=== PATIENT | female | born 1990 | race Caucasian/White ===

== ENCOUNTER 2021-02-26 19:09 | Emergency (ER) | payer OTHER ==
[2021-02-26 20:47] LABS: Bilirubin 1+ (Negative); Blood, Urine 50 (Negative); Clarity Clear (Clear); Glucose, Urine (Dipstick) Normal (Negative); Ketone, Urine 150 mg/dL (Negative); Leukocyte Negative (Negative); Nitrite Negative (Negative); Protein, Urine (Dipstick) 15 mg/dl (Neg-Trace); Specific Gravity, Urine 1.025 (1.002-1.036); Urobilinogen Normal mg/dL (Less than 2)
[2021-02-26 20:51] LABS: #Monocytes 0.3 10x3/uL (0.0-1.1); %Basophils 0.3 % (0.0-2.0); %Lymphocytes 2.7 % (18.0-47.0); %Monocytes 2.7 % (0.0-10.0); Hemoglobin 15.8 g/dL (12.0-15.5); Mean Corpuscular HGB CONC 34.8 g/dL (32.0-36.0); Mean Corpuscular Hemoglobin 30.7 pg (27.0-33.0); Mean Corpuscular Volume 88.3 fl (81.6-98.3); Mean Platelet Volume 8.9 fl (7.4-10.4); Platelet Count 204 10x3/uL (150-450); RBC Distribution Width 12.1 % (11.5-14.5); Red Blood Cell (RBC) Count 5.14 10x6/uL (3.90-5.03); White Blood Cell (WBC) Count 10.6 10x3/uL (3.5-10.5)
[2021-02-26] MEDS ORDERED: Fentanyl 100 MCG/2 ML VIAL ONE (21:03)
[2021-02-26] MEDS ORDERED: Promethazine HCl 25 MG/ML VIAL ONE (21:03)
[2021-02-26 21:04] LABS: Bacteria/HPF None Seen HPF (None Seen); Mucous/LPF 2+ LPF (<2+); Squamous Epithelial 0-3 HPF (0-3); WBC/HPF None Seen HPF (0-3)
[2021-02-26 21:06] LABS: BHCG - Serum Negative (NEGATIVE); Pregs Control Background? CLEAR/WHITE (CLR/WHITE); Pregs Control Bar Appear? YES (CONTROL BAR)
[2021-02-26 21:12] LABS: ALT (SGPT) 37 U/L (8-55); AST (SGOT) 28 U/L (5-34); Albumin 4.5 g/dL (3.5-5.0); Alkaline Phosphatase 98 U/L (40-110); Anion Gap 17 mmol/L (10-20); BUN (Urea Nitrogen) 11 mg/dL (7.0-18.7); Bilirubin, Total 0.7 mg/dL (0.2-1.2); Calc. Creatinine Clearance 0 mL/min (70-130); Calcium 9.2 mg/dL (7.8-10.44); Carbon Dioxide 24 mmol/L (22-29); Chloride 99 mmol/L (98-107); Globulin 3.8 g/dL (2.4-3.5); Glucose 114 mg/dL (70-105); Potassium 3.8 mmol/L (3.5-5.1); Protein, Total 8.3 g/dL (6.0-8.3); Sodium 136 mmol/L (136-145)
[2021-02-26 21:13] LABS: Magnesium 1.8 mg/dL (1.6-2.6)
[2021-02-26] MEDS ORDERED: Acetaminophen 500 MG TAB ONE (23:17)
== END 2021-02-26 23:25 | disposition home or self-care (01) ==
LOC: CSHERS 19:09
DX: R11.2 Nausea with vomiting, unspecified (principal); R10.31 Right lower quadrant pain; R19.7 Diarrhea, unspecified
CPT/HCPCS: 36415; 74177; 80053; 81003; 81015; 83605; 83690; 83735; 84703; 85025; 87086; 94760; 96365; 96375; J2550; J3010

== ENCOUNTER 2022-03-27 16:49 | Day surgery (SDC) | payer BC, OTHER, SELFPAY ==
[2022-03-27] MEDS ORDERED: hydrALAZINE 20 MG/ML VIAL SLOW IVP PRN (17:42)
[2022-03-27] MEDS ORDERED: Lactated Ringer's 2,000 ML IV SCH (17:45)
[2022-03-27] MEDS ORDERED: Promethazine HCl 25 MG/ML VIAL IM PRN (17:48)
[2022-03-27 18:12] VITALS: BMI 30.2
[2022-03-27] MEDS ORDERED: Ondansetron PF 4 MG/2 ML Vial IVP SCH (18:15)
[2022-03-27] MEDS ORDERED: Ondansetron PF 4 MG/2 ML Vial ONE (18:17)
[2022-03-27 18:58] LABS: Anion Gap 17 mmol/L (10-20); BUN (Urea Nitrogen) 7 mg/dL (7.0-18.7); Calc. Creatinine Clearance 156 mL/min (70-130); Carbon Dioxide 20 mmol/L (22-29); Chloride 105 mmol/L (98-107); Glucose 94 mg/dL (70-105); Sodium 139 mmol/L (136-145)
[2022-03-27] MEDS ORDERED: NS 0.9% w/ 40 MEQ KCL 1,000 ML IV SCH (20:00)
== END 2022-03-28 07:52 | disposition home or self-care (01) ==
LOC: CSHLD/OP 16:49
PROVIDERS: ATTEND Obstetrics & Gynecology
DX: O99.612 Diseases of the digestive system complicating pregnancy, second trimester (principal); K52.9 Noninfective gastroenteritis and colitis, unspecified; O99.282 Endocrine, nutritional and metabolic diseases complicating pregnancy, second trimester; E86.0 Dehydration; O09.212 Supervision of pregnancy with history of pre-term labor, second trimester; Z3A.27 27 weeks gestation of pregnancy; Z86.16 Personal history of COVID-19; Z88.1 Allergy status to other antibiotic agents
CPT/HCPCS: 36415; 80048; 96361; 96365; 96366; 96372; 96375; 99282; J2405; J2550; J3480

== ENCOUNTER 2022-05-19 21:50 | Day surgery (SDC) | payer BC ==
[2022-05-19] MEDS ORDERED: hydrALAZINE 20 MG/ML VIAL SLOW IVP PRN (22:00)
== END 2022-05-19 22:45 | disposition home or self-care (01) ==
LOC: CSHLD/OP 21:50
PROVIDERS: ATTEND Obstetrics & Gynecology
DX: O36.8130 Decreased fetal movements, third trimester, not applicable or unspecified (principal); Z3A.34 34 weeks gestation of pregnancy
CPT/HCPCS: 99281

== ENCOUNTER 2022-06-08 02:24 | Day surgery (SDC) | payer BC ==
[2022-06-08 02:49] VITALS: BMI 30.2
[2022-06-08] MEDS ORDERED: hydrALAZINE 20 MG/ML VIAL SLOW IVP PRN (03:57)
[2022-06-08] MEDS ORDERED: Acetaminophen 500 MG TAB PO PRN (05:39)
== END 2022-06-08 06:57 | disposition home or self-care (01) ==
LOC: CSHLD/OP 02:24
PROVIDERS: ATTEND Obstetrics & Gynecology
DX: O47.1 False labor at or after 37 completed weeks of gestation (principal); O99.891 Other specified diseases and conditions complicating pregnancy; N89.8 Other specified noninflammatory disorders of vagina; Z3A.37 37 weeks gestation of pregnancy; Z88.1 Allergy status to other antibiotic agents

== ENCOUNTER 2022-06-15 08:40 | Day surgery (SDC) | payer BC ==
[2022-06-15 09:26] VITALS: BMI 30.2
[2022-06-15] MEDS ORDERED: hydrALAZINE 20 MG/ML VIAL SLOW IVP PRN (09:44)
[2022-06-15 10:49] LABS: Bilirubin Neg (Negative); Blood, Urine 10 (Negative); Clarity Clear (Clear); Glucose, Urine (Dipstick) Normal (Negative); Ketone, Urine 50 mg/dL (Negative); Leukocyte 100 (Negative); Nitrite Negative (Negative); Protein, Urine (Dipstick) Negative (Neg-Trace); Urobilinogen Normal mg/dL (Less than 2)
[2022-06-15 10:51] LABS: Urine Culture Reflex No No
[2022-06-15 11:06] LABS: Bacteria/HPF 1+ HPF (None Seen); RBC/HPF 0-3 HPF (0-3)
[2022-06-15] MEDS ORDERED: Ondansetron ODT 4 MG TAB PO PRN (11:27)
[2022-06-15] MEDS ORDERED: Ondansetron PF 4 MG/2 ML Vial ONE (11:29)
== END 2022-06-15 12:08 | disposition home or self-care (01) ==
LOC: CSHLD/OP 08:40
PROVIDERS: ATTEND Obstetrics & Gynecology
DX: O47.1 False labor at or after 37 completed weeks of gestation (principal); O21.2 Late vomiting of pregnancy; Z3A.38 38 weeks gestation of pregnancy
CPT/HCPCS: 81001; J2405; Q0162

== ENCOUNTER 2022-06-24 16:06 | Outpatient (CLI) | payer BC | END 2022-06-24 16:07 | disposition home or self-care (01) | LOC: CSHLAB 16:06 | PROVIDERS: ATTEND Obstetrics & Gynecology | DX: Z20.822 Contact with and (suspected) exposure to COVID-19 (principal) | CPT/HCPCS: 87811 ==

== ENCOUNTER 2022-06-27 06:00 | Inpatient (IN) | payer BC ==
[~2022-06-27 06:00] MED LIST: Acetaminophen 500 MG TAB PO PRN; Butorphanol Tartrate 1 MG/ML VIAL SLOW IVP PRN; Carboprost 250 MCG/ML AMP IM PRN; Diphenoxylate HCl/Atropine Tablet PO PRN; Docusate 100 MG CAP PO PRN; HYDROcodone/Acetaminophen 5/325 mg Tablet PO PRN; Ibuprofen 800 MG TAB PO PRN; Lactated Ringer's 1,000 ML IV SCH; Lidocaine 1% (PF) 30 ML VIAL SC PRN; Methylergonovine 0.2 MG/ML VIAL IM PRN; Misoprostol 200 MCG TAB PR PRN; NS w/ Oxytocin 30 units 500 ML IV SCH; Ondansetron PF 4 MG/2 ML Vial IVP PRN; Promethazine HCl 25 MG/ML VIAL IM PRN; Zolpidem Tartrate 5 MG TAB PO PRN; hydrALAZINE 20 MG/ML VIAL SLOW IVP PRN
[2022-06-27 09:02] VITALS: BMI 30.4
[2022-06-27 09:23] LABS: Hemoglobin 10.6 g/dL (12.0-15.5); Mean Corpuscular HGB CONC 35.2 g/dL (32.0-36.0); Mean Corpuscular Hemoglobin 30.5 pg (27.0-33.0); Mean Corpuscular Volume 86.5 fl (81.6-98.3); Mean Platelet Volume 9.3 fl (7.4-10.4); Platelet Count 163 10x3/uL (150-450); RBC Distribution Width 13.2 % (11.5-14.5); Red Blood Cell (RBC) Count 3.48 10x6/uL (3.90-5.03); White Blood Cell (WBC) Count 8.2 10x3/uL (3.5-10.5)
[2022-06-27 10:08] LABS: Hep B Surf Ag Non-Reactive S/CO (NonReactive)
[2022-06-27 10:10] LABS: Syphilis Antibody Nonreactive (Nonreactive); Syphilis Antibody Index 0.05 S/CO (<1.00 Non-Reactive)
[2022-06-27 10:39] LABS: HBSAg Index 0.28 S/CO (0-0.99)
[2022-06-27] MEDS ORDERED: Fentanyl 2 mcg/Bup 0.1% Cadd 100 ML ONE (11:19)
[2022-06-27] MEDS ORDERED: Promethazine HCl 25 MG/ML VIAL IM PRN ×2 (11:56→18:01)
[2022-06-27] MEDS ORDERED: Moisturizing Cream (Eucerin) 113 GM JAR TOP PRN (11:56)
[2022-06-27] MEDS ORDERED: Naloxone HCl 0.4 mg/ml Vial IVP PRN ×2 (11:56)
[2022-06-27] MEDS ORDERED: Lactated Ringer's 500 ML IV PRN (11:56)
[2022-06-27] MEDS ORDERED: diphenhydrAMINE 50 MG/ML VIAL IVP PRN (11:56)
[2022-06-27] MEDS ORDERED: Ondansetron PF 4 MG/2 ML Vial IVP PRN ×2 (11:56→18:01)
[2022-06-27] MEDS ORDERED: ePHEDrine Sulfate 50 MG/10 ML VIAL SLOW IVP PRN (11:56)
[2022-06-27] MEDS ORDERED: Acetaminophen 325 MG TAB PO PRN (11:56)
[2022-06-27] MEDS ORDERED: Fentanyl 2 mcg/Bupivacaine 0.1% Cassette 100 ML EPIDURAL SCH (12:00)
[2022-06-27] MEDS ORDERED: Communication Order-Pharmacy FS SCH (12:00)
[2022-06-27] MEDS ORDERED: Misoprostol 200 MCG TAB ONE (14:12)
[2022-06-27] MEDS ORDERED: NS w/ Oxytocin 30 units 500 ML IV SCH (18:01)
[2022-06-27] MEDS ORDERED: Methylergonovine 0.2 MG/ML VIAL IM PRN (18:01)
[2022-06-27] MEDS ORDERED: Varicella virus, LIVE 0.5 ML VIAL SC ONE (18:01)
[2022-06-27] MEDS ORDERED: Preparation H Ointment 28 GM TUBE PR PRN (18:01)
[2022-06-27] MEDS ORDERED: diphenhydrAMINE 25 MG CAP PO PRN (18:01)
[2022-06-27] MEDS ORDERED: Lanolin Ointment 7 GM TUBE TOP PRN (18:01)
[2022-06-27] MEDS ORDERED: Boostrix 0.5 ML (Tdap) VIAL IM ONE (18:01)
[2022-06-27] MEDS ORDERED: Milk Of Magnesia 30 ML UDCUP PO PRN (18:01)
[2022-06-27] MEDS ORDERED: Bisacodyl 10 MG SUPP PR PRN (18:01)
[2022-06-27] MEDS ORDERED: Zolpidem Tartrate 5 MG TAB PO PRN (18:01)
[2022-06-27] MEDS ORDERED: Misoprostol 200 MCG TAB VAG PRN (18:01)
[2022-06-27] MEDS ORDERED: Benzocaine-Menthol 82.5 ML CAN TOP PRN (18:01)
[2022-06-27] MEDS ORDERED: Measles/Mumps/Rubella 10 MCG/0.5 ML VIAL SC ONE (18:01)
[2022-06-27] MEDS ORDERED: hydrALAZINE 20 MG/ML VIAL SLOW IVP PRN (18:01)
[2022-06-27] MEDS: Docusate 100 MG CAP PO SCH (21:23)
[2022-06-27] MEDS: HYDROcodone/Acetaminophen 5/325 mg Tablet PO PRN (21:23)
[2022-06-27] MEDS: Ibuprofen 800 MG TAB PO SCH (21:23)
[2022-06-28] MEDS: Ibuprofen 800 MG TAB PO SCH ×2 (06:03→14:12)
[2022-06-28 06:43] LABS: Hemoglobin 10.1 g/dL (12.0-15.5); Mean Corpuscular HGB CONC 34.8 g/dL (32.0-36.0); Mean Corpuscular Hemoglobin 30.1 pg (27.0-33.0); Mean Corpuscular Volume 86.3 fl (81.6-98.3); Mean Platelet Volume 8.9 fl (7.4-10.4); Platelet Count 148 10x3/uL (150-450); RBC Distribution Width 13.5 % (11.5-14.5); Red Blood Cell (RBC) Count 3.36 10x6/uL (3.90-5.03); White Blood Cell (WBC) Count 11.1 10x3/uL (3.5-10.5)
[2022-06-28] MEDS ORDERED: Ferrous Sulfate 325 MG TAB PO SCH (08:00)
[2022-06-28] MEDS: Docusate 100 MG CAP PO SCH (08:54)
[2022-06-28] MEDS: HYDROcodone/Acetaminophen 5/325 mg Tablet PO PRN (08:54)
[2022-06-28 11:48] VITALS: TEMP 98.4
[2022-06-28 14:42] VITALS: BP 141/79
== END 2022-06-28 16:35 | disposition home or self-care (01) | DRG 807 ==
LOC: CSHLD 06:03 → CSHPP 16:55
PROVIDERS: ADMIT Obstetrics & Gynecology; ATTEND Obstetrics & Gynecology
PROC: 10E0XZZ Delivery of Products of Conception, External Approach (ICD-10-PCS; principal; 2022-06-27)
DX: O80 Encounter for full-term uncomplicated delivery (principal); Z37.0 Single live birth; Z3A.39 39 weeks gestation of pregnancy; Z88.1 Allergy status to other antibiotic agents; Z20.822 Contact with and (suspected) exposure to COVID-19
CPT/HCPCS: 36415; 51702; 85027; 86780; 86850; 86900; 86901; 87340; 87811; J2590